=== PATIENT | male | born 1940 | race Caucasian/White ===

== ENCOUNTER → 2016-08-21 | Outpatient (CLI) | payer MEDICARE ==
--- NOTE | 2016-08-21 10:29 | XR ---
EXAMINATION TYPE: XR chest 2V DATE OF EXAM: 08/21/2016 HISTORY: Z00.00 general adult medical examination. REFERENCE: NONE. FINDINGS: The lungs are clear. Pleural space are clear. The heart is not enlarged. IMPRESSION: NO ACTIVE INTRATHORACIC DISEASE.
== END | disposition home or self-care (01) ==
LOC: RADXRMAIN 10:07
PROVIDERS: ATTEND Family Medicine
DX: Z00.00 Encounter for general adult medical examination without abnormal findings (principal)
CPT/HCPCS: 71020

== ENCOUNTER 2017-12-12 07:15 | Day surgery (SDC) | payer MEDICARE ==
[2017-12-10 10:22] VITALS: BMI 27.0
[2017-12-12 08:10] VITALS: TEMP 97.6
[2017-12-12] MEDS ORDERED: LACTATED RINGERS 1,000 ML IV ONE (08:21)
[2017-12-12] MEDS ORDERED: LIDOCAINE 1% 20 ML VIAL (10MG/ML) FOR IV START INTRADERMA ONE (08:22)
[2017-12-12] MEDS ORDERED: LIDOCAINE 1% INJ 10MG/ML (20 ML MDV) ONE (08:39)
[2017-12-12] MEDS ORDERED: PROPOFOL 10 MG/ML 20 ML VIAL IV ONE (08:39)
--- NOTE | 2017-12-12 08:57 | P.PCN ---
Date of Procedure: 12/12/17 Procedure(s) Performed: BRIEF HISTORY: Patient is a 77-year-old pleasant white male, scheduled for an elective colonoscopy as a part of evaluation of positive stool cologuard . PROCEDURE PERFORMED: Colonoscopy with snare polypectomy. PREOPERATIVE DIAGNOSIS: Positive stool for cologuard IV sedation per Anesthesia. PROCEDURE: After informed consent was obtained, the patient, was brought into the endoscopy unit. IV sedation was administered by Anesthesia under continuous monitoring. Digital rectal examination was normal. Initially the Olympus CF- 160 flexible video colonoscope was then inserted in the rectum, gradually advanced into the cecum without any difficulty. Careful examination was performed as the scope was gradually being withdrawn. Ileocecal valve and the appendiceal orifice were visualized and appeared normal. Prep was excellent. Mucosa of the cecum, ascending colon, transverse colon, descending colon, sigmoid colon, and rectum appeared normal. In the distal rectum there was a 5 mm sessile polyp removed by snare polypectomy. Retroflexion was performed in the rectum and no lesions were seen. The patient tolerated the procedure well. IMPRESSION: 5 mm distal rectal polyp status post polypectomy Rest of the colon appeared normal RECOMMENDATIONS: Findings of this examination were discussed with the patient as well as his family. He was advised to follow with the biopsy results and if the biopsy shows an adenoma, he can have a repeat colonoscopy in 5 years.
[2017-12-12 09:18] VITALS: BP 175/94; PULSE 68; RESP 18
== END 2017-12-12 09:57 | disposition home or self-care (01) ==
LOC: ORWHC2ENDO 07:15
PROVIDERS: ATTEND Internal Medicine Gastroenterology
DX: Z12.11 Encounter for screening for malignant neoplasm of colon (principal); D12.8 Benign neoplasm of rectum; Z96.653 Presence of artificial knee joint, bilateral
CPT/HCPCS: 88305; 45385; J2001; J2704

== ENCOUNTER → 2018-07-08 | Outpatient (CLI) | payer MEDICARE ==
--- NOTE | 2018-07-08 11:07 | XR ---
EXAMINATION TYPE: XR chest 2V DATE OF EXAM: 07/08/2018 COMPARISON: 08/21/2016 HISTORY: Shortness of breath TECHNIQUE: Frontal and lateral views of the chest are obtained. FINDINGS: Scattered senescent parenchymal changes noted. Hyperinflation compatible with COPD. No evidence for infiltrate. No evidence for atelectasis. Heart size is stable. Mediastinal structures are stable and grossly unremarkable. No evidence for hilar prominence. Degenerative changes dorsal spine. IMPRESSION: 1. No evidence for acute pulmonary disease.
== END | disposition home or self-care (01) ==
LOC: RADXRMAIN 10:32
PROVIDERS: ATTEND Family Medicine
DX: R05 Cough (principal)
CPT/HCPCS: 71046

== ENCOUNTER → 2018-08-26 | Outpatient (CLI) | payer MEDICARE ==
--- NOTE | 2018-08-26 08:37 | CT ---
EXAMINATION TYPE: CT sinus wo con DATE OF EXAM: 08/26/2018 COMPARISON: None HISTORY: 78-year-old male continuous postnasal drip, Chronic sinusitis CT DLP: 606 mGycm Automated exposure control for dose reduction was used. TECHNIQUE: Noncontrast axial views of the paranasal sinuses were obtained. Coronal reconstructions pe rformed. FINDINGS: PARANASAL SINUSES: There may have been prior sinonasal surgery on the left. The left maxillary sinus is asymmetrically s maller and nearly completely opacified. They may have been prior resection of the left maxillary antr um. The frontal, ethmoid, right maxillary, and bilateral sphenoid sinuses are well pneumatized with minim al scattered mucosal thickening in the ethmoid air cells and right maxillary sinus floor. No air-fluid level. Reactive laila- osteogenesis is not seen. There is no destruction of the osseous knight of the paranasal sinuses. THE NASAL CAVITY: The osteomeatal complexes are patent. There is slight rightward nasal septal deviation. Normal middle and inferior turbinates in the left n vaughn cavity are not identified. The left nasal cavity is asymmetrically larger with lobulated soft ti ssue density measuring 3.5 cm AP by 2.0 cm wide by 3.3 cm craniocaudal within the left nasal cavity s howing broad-based abutment of the nasal septum. The imaged orbits show no gross abnormality. Mild to moderate generalized supratentorial volume loss. The visualized mastoid air cells and middle ear cavities are well pneumatized. Reformatted images confirm above findings. IMPRESSION: 1. Lobulated soft tissue density measuring 3.5 x 3.3 x 2.0 cm within the left nasal cavity with broad -based abutment along the nasal septum. Recommend direct visualization and possible tissue sampling t o exclude neoplasm. 2. Asymmetrically smaller (query prior surgery) left maxillary sinus with near-complete opacification . 3. The left-sided middle and inferior turbinates are absent. Again, correlate for possible prior surg carey.
== END | disposition home or self-care (01) ==
LOC: RADCTMAIN 07:45
PROVIDERS: ATTEND Otolaryngology
DX: M79.89 Other specified soft tissue disorders (principal); J34.89 Other specified disorders of nose and nasal sinuses; Z90.09 Acquired absence of other part of head and neck
CPT/HCPCS: 70486

== ENCOUNTER 2018-09-25 10:09 | Day surgery (SDC) | payer MEDICARE ==
[2018-09-24 08:32] VITALS: BMI 27.3
[~2018-09-25 10:09] MED LIST: DEXAMETHASONE SOD PHOSPHATE 10 MG/ML 1 ML VIAL IV ONE; DEXAMETHASONE SOD PHOSPHATE 4 MG/ML 1 ML VIAL IV ONE; FAMOTIDINE 20 MG/2 ML VIAL IV ONE; HYDROmorphone 0.5 MG/0.5 ML SYRINGE IVP PRN; LACTATED RINGERS 1,000 ML IV SCH; LIDOCAINE 1% 20 ML VIAL (10MG/ML) FOR IV START INTRADERMA PRN; ONDANSETRON 4 MG/2 ML VIAL IVP ONE; OXYMETAZOLINE 0.05% NASL SPRAY 1 SPRAY BOTTLE NASAL ONE
[2018-09-25] MEDS ORDERED: LIDOCAINE 1% INJ 10MG/ML (20 ML MDV) ONE (12:08)
[2018-09-25] MEDS ORDERED: SUCCINYLCHOLINE CHLORIDE 100 MG/5 ML SYR IV ONE (12:08)
[2018-09-25] MEDS ORDERED: MIDAZOLAM 2 MG/2 ML VIAL ONE (12:08)
[2018-09-25] MEDS ORDERED: PROPOFOL 10 MG/ML 20 ML VIAL IV ONE (12:08)
[2018-09-25] MEDS ORDERED: ePHEDrine SULFATE/0.9% NACL/PF 50 MG/5 ML SYRINGE IV ONE (12:08)
[2018-09-25] MEDS ORDERED: fentaNYL (PF) 50 MCG/ML 2 ML AMP ONE (12:08)
[2018-09-25] MEDS ORDERED: GLYCOPYRROLATE 0.2 MG/ML 2 ML VIAL ONE (12:08)
--- NOTE | 2018-09-25 13:05 | P.OP ---
Date of Procedure: 09/25/18 Preoperative Diagnosis: Left nasal mass Left sided chronic sinusitis Postoperative Diagnosis: Same Procedure(s) Performed: Left sided endoscopic sinus surgery including left maxillary antrostomy with removal of tissue from the left maxillary sinus and debridement/excision of left nasal mass Anesthesia: JOSUE Surgeon: Major Jordan Estimated Blood Loss (ml): 10 Pathology: other (Left nasal mass and left sided sinus contents) Condition: stable Disposition: PACU Indications for Procedure: This 78-year-old white male who has a remote history of sinus surgery in 1983 of a mass removed from the left nasal cavity and he states that this was benign. We could not obtain these records. He's had recurrent issue more recently with left-sided nasal airway obstruction and some bleeding and crusting and drainage. Computed tomography scan showed evidence of mass in the left nasal cavity and left maxillary sinus Operative Findings: Maxillary antrostomy on the left was obstructed and therefore was opened the maxillary sinus was small but there was some thickening in the sinus which was cleaned. The nasal mass arose from the mid septum and was large approximately 3.5 cm and most consistent grossly with inverting papilloma. The base of this was approximately 1.5 cm off of the mid septum Description of Procedure: The patient was brought in the operative suite and placed in a supine position. The patient underwent induction of general anesthesia with oral endotracheal intubation without difficulty. The patient was prepped and draped using aseptic fashion. 1% lidocaine with 1-100,000 epinephrine was infused submucosally deep to the mass as well as lateral nasal wall. The mass itself was biopsied and then further debrided with the microdebrider to remove this grossly entirely. The base did have a prominent vessel with some arterial bleeding and therefore this was cauterized with suction cautery to control the bleeding. Attention was turned to the lateral nasal wall where the inferior turbinate was missing. The maxillary ostium was enlarged at the expense of the anterior fontanelle and there was mucosal thickening within the maxillary sinus which was debrided also once this was completed a common patient of standard and firm nasal pore nasal dressing was placed in the left nasal cavity. There was good hemostasis noted. The patient was suctioned in oral gastric fashion and was allowed to emerge from general anesthesia having tolerated procedure well and was extubated in the operating suite and transferred to the postop recovery area in satisfactory condition.
[2018-09-25] MEDS ORDERED: LIDOCAINE 1%-EPI 1:100,000 20 ML VIAL SUBMUCOSAL ONE (13:06)
[2018-09-25 13:21] VITALS: TEMP 97.5
[2018-09-25 13:34] VITALS: RESP 16
[2018-09-25 14:48] VITALS: BP 135/77; PULSE 79
== END 2018-09-25 15:05 | disposition home or self-care (01) ==
LOC: OR 10:09
PROVIDERS: ATTEND Otolaryngology
DX: C30.0 Malignant neoplasm of nasal cavity (principal); C31.0 Malignant neoplasm of maxillary sinus; J32.0 Chronic maxillary sinusitis; J34.2 Deviated nasal septum; J34.89 Other specified disorders of nose and nasal sinuses; N40.0 Benign prostatic hyperplasia without lower urinary tract symptoms; H91.90 Unspecified hearing loss, unspecified ear; Z87.891 Personal history of nicotine dependence; Z96.60 Presence of unspecified orthopedic joint implant; Z79.899 Other long term (current) drug therapy
CPT/HCPCS: 31267; 88305; 88342; 88341; J2250; J1100; J2405; J0690; J2001; J3010; J0330; J2704

== ENCOUNTER → 2018-12-06 | Outpatient (CLI) | payer MEDICARE ==
--- NOTE | 2018-12-06 08:50 | CT ---
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 Bone and soft tissue settings are submitted. Previously noted lobulated soft tissue mass within the left nasal cavity has been resected. There is no evidence for recurrence. No enhancing mass seen. Postoperative change of medial maxillary antrectomy on the left. Mild left maxillary mucosal thickeni ng. The paranasal sinuses demonstrate normal aeration and development. The paranasal sinuses are free of mucosal thickening or air fluid level. The nasal septum is midline. No bony destructive changes are seen within the field of view. IMPRESSION: 1. Previously noted lobulated soft tissue mass within the left nasal cavity has been resected. There is no evidence for recurrence. No enhancing mass seen.
== END | disposition home or self-care (01) ==
LOC: RADCTMAIN 07:34
PROVIDERS: ATTEND Otolaryngology
DX: M79.89 Other specified soft tissue disorders (principal)
CPT/HCPCS: 70491; 71260; 70487; Q9967

== ENCOUNTER → 2018-12-24 | Outpatient (CLI) | payer MEDICARE ==
--- NOTE | 2018-12-25 02:42 | MR ---
EXAMINATION TYPE: MR orbits wo/w con DATE OF EXAM: 12/24/2018 COMPARISON: CT scan 12/06/2018 HISTORY: Malignant neoplasm of nasal cavity TECHNIQUE: Multiplanar, multisequence images of the sinuses is performed without and with IV contrast, utilizing 7.5 mL intravenous Gadavist . FINDINGS: There is cerebral cortical atrophy. There is thinning of the corpus callosum. There is mild enlargeme nt of the ventricles. There is no mass effect nor midline shift. There is no evidence of intracranial hemorrhage. There is previous surgery left maxillary sinus with osteotomy. I see no pathologic enhan cement. There is no evidence of orbital mass. Optic nerves appear normal. Extraocular muscles appear normal. I see no suspicious mass in the paranasal sinuses. IMPRESSION: Cerebral atrophy. Left side maxillary sinus surgery. No sign of recurrent tumor. No change compared to old CT scan of .
== END | disposition home or self-care (01) ==
LOC: RADMRIMAIN 14:26
PROVIDERS: ATTEND Otolaryngology
DX: G31.9 Degenerative disease of nervous system, unspecified (principal); C30.0 Malignant neoplasm of nasal cavity; Z98.890 Other specified postprocedural states
CPT/HCPCS: 70543; A9585

== ENCOUNTER → 2021-09-29 | Outpatient (CLI) | payer MEDICARE | END | disposition home or self-care (01) | LOC: LABWHC1 08:54 | PROVIDERS: ATTEND Family Medicine | DX: J18.9 Pneumonia, unspecified organism (principal) | CPT/HCPCS: 36415; 85379 ==

== ENCOUNTER → 2021-12-02 | Outpatient (CLI) | payer MEDICARE ==
[2021-12-02 14:50] LABS: HCT 42.7 % (39.6-50.0); HGB 14.3 g/dL (13.0-17.0); MCH 36.5 pg (27.0-32.0); MCHC 33.5 g/dL (32.0-37.0); MCV 108.9 fL (80.0-97.0); Mean Platelet Volume 10.8 fL (9.5-12.2); NRBC Per 100 WBC 0 /100 WBCS (0.0-0.0); Platelet Count 208 X 10*3/uL (140-440); RBC 3.92 X 10*6/uL (4.40-5.60); RDW 12.8 % (11.5-14.5); WBC 5.57 X 10*3/uL (4.50-10.00)
[2021-12-02 15:17] LABS: Basophils # (A) 0.03 X 10*3/uL (0.00-0.10); Basophils % (A) 0.5 %; Eosinophils # (A) 0.12 X 10*3/uL (0.04-0.35); Eosinophils % (A) 2.2 %; Immature Grans, Automated 0.5 %; Lymphocytes % (A) 21.5 %; Monocytes # (A) 0.78 X 10*3/uL (0.20-1.00); Neutrophils # (A) 3.41 X 10*3/uL (1.80-7.70); Neutrophils % (A) 61.3 %
[2021-12-02 15:18] LABS: RBC Morphology NORMAL
[2021-12-02 16:31] LABS: ALT 33 U/L (10-49); AST 48 U/L (14-35); Albumin 4.2 g/dL (3.8-4.9); Albumin/Globulin Ratio 1.31 (1.60-3.17); Alkaline Phosphatase 70 U/L (41-126); Bilirubin, Conjugated <0.20 mg/dL (0.20-0.40); Blood Urea Nitrogen 10.2 mg/dL (9.0-27.0); Calcium 9.3 mg/dL (8.7-10.3); Carbon Dioxide 26.2 mmol/L (20.0-27.5); Chloride 101 mmol/L (96-109); Chol/HDL Ratio 4.15 Ratio; Globulin 3.2 g/dL (1.6-3.3); Glucose 130 mg/dL (70-110); LDL Cholesterol,Calculated 154.6 mg/dL (0.0-131.0); Non-African American GFR(CKD) 70.8 (60.0-200.0); Potassium 4.7 mmol/L (3.5-5.5); Sodium 139 mmol/L (135-145); Total Protein 7.4 g/dL (6.2-8.2)
== END | disposition home or self-care (01) ==
LOC: LABWHC1 08:44
PROVIDERS: ATTEND Family Medicine
DX: Z00.00 Encounter for general adult medical examination without abnormal findings (principal); Z12.5 Encounter for screening for malignant neoplasm of prostate; E78.5 Hyperlipidemia, unspecified; K21.9 Gastro-esophageal reflux disease without esophagitis; I10 Essential (primary) hypertension; R73.9 Hyperglycemia, unspecified
CPT/HCPCS: 36415; 80053; 80061; 82248; 83036; 84153; 85025